=== PATIENT | female | born 1990 | race African-American/Black ===

== ENCOUNTER 2021-05-05 13:35 | Emergency (ER) | payer MEDICARE ==
[~2021-05-05] VITALS: Ht 154.9 cm; Wt 98.1 kg
[~2021-05-05 13:35] MED LIST: ADVAIR HFA 115-12 GM INH; ASPIRIN81 MG PO; STOOL SOFTENER50 MG PO
[2021-05-05] MEDS ORDERED: ONDANSETRON ODT4 MG PO (16:35)
[2021-05-05] MEDS ORDERED: PREVACID15 M1 PO (16:35)
== END 2021-05-05 16:50 | disposition home or self-care (01) ==
LOC: FSED 14:25
DX: R10.11 Right upper quadrant pain (principal); R11.0 Nausea; K29.70 Gastritis, unspecified, without bleeding; F17.210 Nicotine dependence, cigarettes, uncomplicated
CPT/HCPCS: 76705; 80048; 80076; 81003; 81025; 85025; 99284

== ENCOUNTER 2024-05-11 22:36 | Emergency (ER) | payer OTHER, MEDICARE ==
[~2024-05-11] VITALS: Ht 154.9 cm; Wt 98.0 kg
[~2024-05-11 22:36] MED LIST changes: +ONDANSETRON ODT4 MG PO; +PREVACID15 M1 PO; +REGLAN10 MG PO
[2024-05-11 22:40] VITALS: PULSE 92; RESP 17; TEMP 98.2
[2024-05-11] MEDS: KETOROLAC TROMETHAMINE 30 MG/ML VIAL IV STA (23:45)
[2024-05-11] MEDS: ONDANSETRON HCL INJ 2MG/ML 2ML 2 MG/ML VIAL IV STA (23:45)
[2024-05-11] MEDS ORDERED: IOPAMIDOL 370 MG/ML 100 ML INFUS..BTL INJ ONE (23:51)
[2024-05-12] MEDS ORDERED: ULTRAM 50MG50 MG PO (01:55)
[2024-05-12 02:07] VITALS: BP 149/62; PULSE 74; RESP 18; TEMP 98.3; O2SAT 98
== END 2024-05-12 02:08 | disposition home or self-care (01) ==
LOC: FSED 22:45
DX: R10.13 Epigastric pain (principal); K85.90 Acute pancreatitis without necrosis or infection, unspecified; I10 Essential (primary) hypertension; F41.9 Anxiety disorder, unspecified; F31.9 Bipolar disorder, unspecified
CPT/HCPCS: 36415; 74177; 76705; 80048; 80076; 81003; 81025; 83690; 85025; 99284; J1885; J2405; Q9967

== ENCOUNTER 2024-06-20 10:02 | Emergency (ER) | payer OTHER ==
[~2024-06-20] VITALS: Ht 160 cm; Wt 131.6 kg
[~2024-06-20 10:02] MED LIST changes: +ULTRAM 50MG50 MG PO
[2024-06-20] MEDS ORDERED: HYDROCHLOROTHIA50 MG (11:05)
[2024-06-20] MEDS ORDERED: METAXALONE800 MG (11:05)
[2024-06-20] MEDS ORDERED: NAPROXEN250 MG PO (11:05)
[2024-06-20] MEDS ORDERED: CYCLOBENZAPRINE5 MG PO (11:05)
[2024-06-20] MEDS ORDERED: TYLENOL #3 (11:05)
[2024-06-20] MEDS ORDERED: BENZONATATE200 MG PO (11:05)
[2024-06-20] MEDS ORDERED: HYDROCODON-ACE1 EAC9 (11:05)
[2024-06-20] MEDS ORDERED: VENTOLIN HFA18 GM INH (11:05)
[2024-06-20] MEDS ORDERED: IBUPROFEN200 MG PO (11:05)
[2024-06-20 12:26] VITALS: PULSE 88; RESP 18; TEMP 97.6; O2SAT 97
[2024-06-20] MEDS ORDERED: ZITHROMAX250 MG PO (12:50)
[2024-06-20] MEDS: AZITHROMYCIN 250 MG TAB PO ONE (12:55)
== END 2024-06-20 12:59 | disposition home or self-care (01) ==
LOC: FSED 10:13
DX: R05.9 Cough, unspecified (principal); J18.9 Pneumonia, unspecified organism; I10 Essential (primary) hypertension; F41.9 Anxiety disorder, unspecified; F31.9 Bipolar disorder, unspecified; Z11.52 Encounter for screening for COVID-19; F17.210 Nicotine dependence, cigarettes, uncomplicated
CPT/HCPCS: 0223U; 71046; 87400; 99283

== ENCOUNTER 2024-09-13 14:36 | Emergency (ER) | payer OTHER ==
[~2024-09-13] VITALS: Ht 160 cm; Wt 132.6 kg
[~2024-09-13 14:36] MED LIST changes: +BENZONATATE200 MG PO; +CYCLOBENZAPRINE5 MG PO; +HYDROCHLOROTHIA50 MG; +HYDROCODON-ACE1 EAC9; +IBUPROFEN200 MG PO; +METAXALONE800 MG; +NAPROXEN250 MG PO; +TYLENOL #3; +VENTOLIN HFA18 GM INH; +ZITHROMAX250 MG PO
[2024-09-13] MEDS: ACETAMINOPHEN 325 MG TAB PO ONE (15:36)
[2024-09-13] MEDS: KETOROLAC TROMETHAMINE 30 MG/ML VIAL IM ONE (15:36)
[2024-09-13] MEDS ORDERED: TYLENOL325 MG PO (17:22)
[2024-09-13] MEDS ORDERED: INDOMETHACIN50 MG PO (17:22)
[2024-09-13 17:27] VITALS: PULSE 90; RESP 16; TEMP 97.9; O2SAT 99
== END 2024-09-13 17:30 | disposition home or self-care (01) ==
LOC: FSED 14:58
DX: M25.572 Pain in left ankle and joints of left foot (principal); M25.472 Effusion, left ankle; I10 Essential (primary) hypertension; F41.9 Anxiety disorder, unspecified; F31.9 Bipolar disorder, unspecified; E66.9 Obesity, unspecified
CPT/HCPCS: 73610; 96372; 99283; J1885

== ENCOUNTER 2024-09-18 21:57 | Emergency (ER) | payer OTHER ==
[~2024-09-18] VITALS: Ht 160 cm; Wt 132.4 kg
[~2024-09-18 21:57] MED LIST changes: +INDOMETHACIN50 MG PO; +TYLENOL325 MG PO
[2024-09-18] MEDS: KETOROLAC TROMETHAMINE 30 MG/ML VIAL IV STA (23:32)
[2024-09-19] MEDS ORDERED: KEFLEX125 MG/5 M PO (00:36)
[2024-09-19] MEDS ORDERED: CEPHALEXIN500 MG PO (00:37)
[2024-09-19] MEDS ORDERED: CEPHALEXIN MONOHYDRATE 250 MG CAP ONE (00:45)
[2024-09-19] MEDS: CEPHALEXIN 500 MG CAP PO ONE (00:52)
[2024-09-19 01:06] VITALS: BP 129/84; PULSE 74; RESP 18; TEMP 98.3; O2SAT 99
[2024-09-19 01:14] LABS: CLARITY,URINE TURBID (CLEAR); COLOR,URINE BROWN (YELLOW); GLUCOSE, URINE NEGATIVE (NEGATIVE); NITRITE,URINE NEGATIVE (NEGATIVE); PROTEIN,URINE DIPSTICK >=300 (NEGATIVE)
[2024-09-19 01:20] LABS: BILIRUBIN,URINE MODERATE (NEGATIVE); KETONES,URINE TRACE (NEGATIVE); LEUKOCYTE ESTERASE ,URINE LARGE (NEGATIVE); PH,URINE 5.5 (5 - 7); URINE UROBILINOGEN 1 mg/dL (0.2 - 1)
[2024-09-19 01:21] LABS: BACTERIA,URINE MANY /HPF; RBC,URINE >50 /HPF (0-5); WBC,URINE (MAN) >50 /HPF (0-5)
[2024-09-19 01:22] LABS: EPITHELIAL CELLS,URINE FEW /LPF
== END 2024-09-19 01:07 | disposition home or self-care (01) ==
LOC: FSED 22:00
DX: R30.0 Dysuria (principal); M25.572 Pain in left ankle and joints of left foot; M54.50 Low back pain, unspecified; I10 Essential (primary) hypertension; J45.909 Unspecified asthma, uncomplicated; F41.9 Anxiety disorder, unspecified; F31.9 Bipolar disorder, unspecified
CPT/HCPCS: 81001; 87086; 99284; J1885

== ENCOUNTER 2024-11-05 02:35 | Inpatient (IN) | payer OTHER ==
[~2024-11-05] VITALS: Ht 160 cm; Wt 128.4 kg
[~2024-11-05 02:35] MED LIST changes: +CEPHALEXIN500 MG PO; +KEFLEX125 MG/5 M PO
[2024-11-05] MEDS ORDERED: DONNATAL/LIDOCAINE/MAALOX 30 ML SUSP PO ONE (03:30)
[2024-11-05] MEDS ORDERED: BELLADONNA ALK/PHENOBARBITAL 5 ML UDC PO ONE (03:45)
[2024-11-05] MEDS ORDERED: MAGNESIUM/ALUMINUM/SIMETHICONE 30 ML UDC PO ONE (03:45)
[2024-11-05] MEDS ORDERED: LIDOCAINE VISC 2% SOLN 15 ML UDC PO ONE (03:45)
[2024-11-05] MEDS ORDERED: IOPAMIDOL 370 MG/ML 100 ML INFUS..BTL INJ ONE (04:12)
[2024-11-05] MEDS: SODIUM CHLORIDE 0.9% 1000ML 1,000 ML IV ONE (04:20)
[2024-11-05] MEDS: LIDOCAINE VISC 2% SOLN 15 ML UDC PO ONE (04:20)
[2024-11-05] MEDS: BELLADONNA ALK/PHENOBARBITAL 5 ML UDC PO ONE (04:21)
[2024-11-05] MEDS: FAMOTIDINE 20 MG/2 ML VIAL IV STA (04:21)
[2024-11-05] MEDS: MAGNESIUM/ALUMINUM/SIMETHICONE 30 ML UDC PO ONE (04:21)
[2024-11-05] MEDS: ONDANSETRON HCL INJ 2MG/ML 2ML 2 MG/ML VIAL IV STA (04:21)
[2024-11-05] MEDS: KETOROLAC TROMETHAMINE 30 MG/ML VIAL IV STA (04:22)
[2024-11-05] MEDS: SODIUM CHLORIDE 0.9% 1000ML 1,000 ML IV SCH (08:35)
[2024-11-05] MEDS: FAMOTIDINE 20 MG/2 ML VIAL IV SCH (08:35)
[2024-11-05 08:58] VITALS: RESP 16; TEMP 98.1
[2024-11-05] MEDS: KETOROLAC TROMETHAMINE 30 MG/ML VIAL IV PRN (09:54)
[2024-11-05 10:32] LABS: CHOL/HDL RATIO 4.2 (3.0-3.6)
[2024-11-05 12:00] VITALS: PULSE 64
[2024-11-05] MEDS: ACETAMINOPHEN 325 MG TAB PO PRN (14:38)
[2024-11-05 15:28] VITALS: BP 127/95; PULSE 62; RESP 18; TEMP 98.2; O2SAT 100
[2024-11-05] MEDS ORDERED: PANTOPRAZOLE SO40 MG PO (15:28)
[2024-11-05] MEDS ORDERED: ARIPIPRAZOLE15 MG PO (15:28)
[2024-11-05] MEDS ORDERED: HYDROXYZINE HCL25 MG PO (15:28)
[2024-11-05] MEDS ORDERED: BUPROPION XL150 MG PO (15:28)
[2024-11-05] MEDS ORDERED: ESIDRIX25 MG PO (15:28)
[2024-11-05] MEDS ORDERED: TOPIRAMATE25 MG PO (15:28)
[2024-11-05] MEDS: ONDANSETRON HCL INJ 2MG/ML 2ML 2 MG/ML VIAL IV PRN (16:55)
[2024-11-05 19:50] VITALS: BP 125/81; PULSE 75; RESP 18; TEMP 97.2; O2SAT 99
[2024-11-05 21:00] VITALS: BP 125/81; PULSE 75; RESP 18; TEMP 97.2; O2SAT 99
[2024-11-05] MEDS: TOPIRAMATE 25 MG TAB PO SCH (21:08)
[2024-11-05] MEDS: ARIPIPRAZOLE 5 MG TABLET PO SCH (21:08)
[2024-11-05] MEDS: HYDROCHLOROTHIAZIDE 25 MG TAB PO SCH (21:09)
[2024-11-05] MEDS: PANTOPRAZOLE SOD 40 MG TABEC PO SCH (21:09)
[2024-11-05] MEDS: HYDROXYZINE HCL 25 MG TAB PO SCH (21:09)
[2024-11-06] VITALS (8 sets, daily range): BP systolic 110–128; BP diastolic 58–90; PULSE 62–86; RESP 16–18; TEMP 96.9–98.1; O2SAT 97–100
[2024-11-06 05:20] LABS: BASOPHILS % 0.5 % (0.0-1.0); EOSINOPHILS # (AUTO) 1.4 (0.0-0.4); EOSINOPHILS % 19.6 % (0.0-6.0); HEMATOCRIT 33.9 % (34.2-44.1); HEMOGLOBIN 10.4 g/dL (12.0-16.0); LYMPHOCYTES % 41.3 % (18.0-39.1); MEAN CORPUSCULAR HEMOGLOBIN 22.1 pg (28-32); MEAN CORPUSCULAR HGB CONC 30.7 g/dL (31-35); MONOCYTES # (AUTO) 0.4 (0.2-0.8); MONOCYTES % 5.4 % (4.4-11.3); NEUTROPHILS # (AUTO) 2.4 (2.1-6.9); NEUTROPHILS % 32.9 % (38.7-80.0); PLATELET COUNT 279 x10e3/uL (140-360); RED BLOOD COUNT 4.71 x10e6/uL (3.6-5.1); RED CELL DISTRIBUTION WIDTH 18.3 % (11.7-14.4); WHITE BLOOD COUNT 7.34 x10e3/uL (4.8-10.8)
[2024-11-06 06:03] LABS: ALBUMIN 2.9 g/dL (3.5-5.0); ALBUMIN/GLOBULIN RATIO 0.9 (0.8-2.0); ANION GAP 12.6 mmol/L (8-16); BILIRUBIN,TOTAL 0.3 mg/dL (0.2-1.2); CALCIUM 8.4 mg/dL (8.4-10.2); CREATININE, SERUM 0.94 mg/dL (0.57-1.11); POTASSIUM 3.6 mmol/L (3.5-5.1); TOTAL PROTEIN 6.1 g/dL (6.5-8.1)
[2024-11-06] MEDS: BUPROPION HCL 150 MG TABCR PO SCH (09:06)
[2024-11-06] MEDS: NICOTINE 21 MG/EA PATCH TOP PRN (14:00)
[2024-11-06 20:58] LABS: % IRON SATURATION 14 % (15-50); IRON 35 ug/dL (50-170); TOTAL IRON BINDING CAPACITY 246 ug/dL (261-478); TRANSFERRIN 176 mg/dL (180-382)
[2024-11-06] MEDS: MAGNESIUM/ALUMINUM/SIMETHICONE 30 ML UDC PO PRN (21:51)
[2024-11-07] VITALS (10 sets, daily range): BP systolic 107–143; BP diastolic 75–89; PULSE 62–88; RESP 15–19; TEMP 97.8–98.5; O2SAT 96–100
[2024-11-07 06:07] LABS: ALBUMIN 2.8 g/dL (3.5-5.0); ALBUMIN/GLOBULIN RATIO 0.8 (0.8-2.0); ANION GAP 12.3 mmol/L (8-16); BILIRUBIN,TOTAL 0.2 mg/dL (0.2-1.2); CALCIUM 8.3 mg/dL (8.4-10.2); CREATININE, SERUM 0.81 mg/dL (0.57-1.11); MAGNESIUM 2.3 MG/DL (1.3-2.1); PHOSPHORUS 2.6 MG/DL (2.3-4.7); POTASSIUM 4.3 mmol/L (3.5-5.1); TOTAL PROTEIN 6.3 g/dL (6.5-8.1)
[2024-11-07 06:18] LABS: THYROID STIMULATING HORMONE 0.57 uIU/mL (0.350-4.940)
[2024-11-07 09:00] LABS: BASOPHILS # (AUTO) 0.1 (0.0-0.1); BASOPHILS % 0.7 % (0.0-1.0); EOSINOPHILS # (AUTO) 1.1 (0.0-0.4); EOSINOPHILS % 15.4 % (0.0-6.0); HEMATOCRIT 37.4 % (34.2-44.1); HEMOGLOBIN 11.2 g/dL (12.0-16.0); LYMPHOCYTES # (AUTO) 2.8 (1.0-3.2); LYMPHOCYTES % 38.8 % (18.0-39.1); MEAN CORPUSCULAR HEMOGLOBIN 21.7 pg (28-32); MEAN CORPUSCULAR HGB CONC 29.9 g/dL (31-35); MEAN CORPUSCULAR VOLUME 72.6 fL (81-99); MONOCYTES # (AUTO) 0.3 (0.2-0.8); MONOCYTES % 4.6 % (4.4-11.3); NEUTROPHILS # (AUTO) 2.9 (2.1-6.9); NEUTROPHILS % 40.2 % (38.7-80.0); PLATELET COUNT 294 x10e3/uL (140-360); RED BLOOD COUNT 5.15 x10e6/uL (3.6-5.1); RED CELL DISTRIBUTION WIDTH 18.5 % (11.7-14.4); WHITE BLOOD COUNT 7.12 x10e3/uL (4.8-10.8)
[2024-11-07] MEDS ORDERED: GADOBENATE DIMEGLUMINE 1 ML IV ONE (10:38)
[2024-11-07] MEDS ORDERED: ALBUTEROL/IPRATROPIUM 3 ML NEB NEB PRN (22:45)
[2024-11-07] MEDS: ALBUTEROL/IPRATROPIUM 3 ML NEB NEB SCH (22:57)
[2024-11-07] MEDS ORDERED: Morphine 4mg INJECTION 4 MG/ML INJ IV PRN (23:15)
[2024-11-08 04:54] VITALS: BP 131/80; PULSE 64; RESP 18; TEMP 97.8; O2SAT 100
[2024-11-08 06:45] VITALS: PULSE 85; RESP 20; O2SAT 97
[2024-11-08 06:46] VITALS: PULSE 75; RESP 20; O2SAT 98
[2024-11-08] MEDS ORDERED: IRON SUCROSE 100 MG in SODIUM CHLORIDE 0.9% 100 ML IV SCH (09:00)
== END 2024-11-08 08:16 | disposition home or self-care (01) | DRG 439 ==
LOC: FSED 03:18 → ERHOLD 05:58 → MED/SURG 13:53
PROVIDERS: ADMIT Internal Medicine; ATTEND Internal Medicine
DX: K85.20 Alcohol induced acute pancreatitis without necrosis or infection (principal); Z68.43 Body mass index [BMI] 50.0-59.9, adult; K86.0 Alcohol-induced chronic pancreatitis; K29.80 Duodenitis without bleeding; K20.90 Esophagitis, unspecified without bleeding; K29.70 Gastritis, unspecified, without bleeding; E66.01 Morbid (severe) obesity due to excess calories; F10.20 Alcohol dependence, uncomplicated; E61.1 Iron deficiency; R16.0 Hepatomegaly, not elsewhere classified; K76.0 Fatty (change of) liver, not elsewhere classified; I10 Essential (primary) hypertension; F41.9 Anxiety disorder, unspecified; F32.A Depression, unspecified; J45.909 Unspecified asthma, uncomplicated; M10.9 Gout, unspecified; R19.7 Diarrhea, unspecified; Z90.49 Acquired absence of other specified parts of digestive tract; Z88.5 Allergy status to narcotic agent
CPT/HCPCS: 36415; 74177; 74183; 80048; 80053; 80061; 80076; 81003; 81025; 82607; 82746; 83540; 83690; 83735; 84100; 84443; 84466; 85025; 85045; 94640; 94799; 96374; 96375; 99284; J1885; J2405; J2470; J3410; J7030; Q9967

== ENCOUNTER 2024-11-27 09:37 | Emergency (ER) | payer OTHER ==
[~2024-11-27] VITALS: Ht 160 cm; Wt 128.4 kg
[~2024-11-27 09:37] MED LIST changes: +ARIPIPRAZOLE15 MG PO; +BUPROPION XL150 MG PO; +ESIDRIX25 MG PO; +HYDROXYZINE HCL25 MG PO; +PANTOPRAZOLE SO40 MG PO; +TOPIRAMATE25 MG PO
[2024-11-27 09:45] VITALS: TEMP 98.1
[2024-11-27] MEDS: ONDANSETRON HCL INJ 2MG/ML 2ML 2 MG/ML VIAL IV STA (10:27)
[2024-11-27] MEDS: FAMOTIDINE 20 MG/2 ML VIAL IV STA (10:27)
[2024-11-27] MEDS: KETOROLAC TROMETHAMINE 30 MG/ML VIAL IV STA (10:28)
[2024-11-27] MEDS: LACTATED RINGER'S 1,000 ML INJ ONE (10:29)
[2024-11-27 12:32] VITALS: PULSE 71; RESP 18
[2024-11-27] MEDS ORDERED: ONDANSETRON ODT8 MG PO (12:33)
[2024-11-27] MEDS ORDERED: KETOROLAC TROME10 MG PO (12:33)
[2024-11-27 12:43] VITALS: BP 117/70; RESP 20; O2SAT 97
== END 2024-11-27 12:44 | disposition home or self-care (01) ==
LOC: FSED 09:42
DX: R10.13 Epigastric pain (principal); K85.90 Acute pancreatitis without necrosis or infection, unspecified; R11.2 Nausea with vomiting, unspecified; I10 Essential (primary) hypertension; J45.909 Unspecified asthma, uncomplicated; F41.9 Anxiety disorder, unspecified; F32.A Depression, unspecified; E66.9 Obesity, unspecified
CPT/HCPCS: 36415; 83690; 99283; J1885; J2405; J7121; J1308